=== PATIENT | female | born 1985 | race Caucasian/White ===

== ENCOUNTER 2017-10-05 06:37 | Emergency (ER) | payer BC ==
--- OUTSIDE RECORDS SUMMARY | 2017-10-05 06:39 | XMS REPORT ---
:1985 Author Organization [employer] Care Team Providers Name Role Phone Aravind Mauricio Provider Role Unavailable Allergies No Known Allergies Problems Problem Type Condition Code Onset Dates Condition Status Problem Alcohol abuse F10.10 Active Problem Thyroid dysfunction E07.9 Active Problem Well woman exam with routine Z01.419 Active gynecological exam Problem Gestational diabetes mellitus O24.419 Active (GDM), antepartum, gestational diabetes method of control unspecified Problem Body mass index (BMI) of 40.0-44.9 Z68.41 Active in adult Problem Dysthymia F34.1 Active Medications No Known Medications Results No Known Results Summary Purpose [employer] Submission
--- OUTSIDE RECORDS SUMMARY | 2017-10-05 06:39 | XMS REPORT ---
:1985 Author Organization [employer] Care Team Providers Name Role Phone Matthew Ferguson Provider Role Unavailable Allergies, Adverse Reactions, Alerts Substance Reaction Event Type N.K.D.A. Info Not Available Non Drug Allergy Problems Problem Type Condition Code Onset Dates Condition Status Assessment Alcohol abuse F10.10 Active Assessment Gestational diabetes mellitus O24.419 Active (GDM), antepartum, gestational diabetes method of control unspecified Assessment Dysthymia F34.1 Active Problem Thyroid dysfunction E07.9 Active Problem Body mass index (BMI) of 40.0-44.9 Z68.41 Active in adult Problem Alcohol abuse F10.10 Active Assessment Body mass index (BMI) of 40.0-44.9 Z68.41 Active in adult Assessment Thyroid dysfunction E07.9 Active Problem Dysthymia F34.1 Active Problem Gestational diabetes mellitus O24.419 Active (GDM), antepartum, gestational diabetes method of control unspecified Medications Medication Code Code Instructions Start End Date Status Dosage System Date Fluoxetine HCl [facility] [id number] 40 MG Oral Once Active tk 1 c po a day d. Results No Known Results Summary Purpose [employer] Submission
--- OUTSIDE RECORDS SUMMARY | 2017-10-05 06:40 | XMS REPORT ---
[...] Medications Results No Known Results Summary Purpose [facility] Submission
--- OUTSIDE RECORDS SUMMARY | 2017-10-05 06:40 | XMS REPORT ---
:1985 Author Organization [employer] Care Team Providers Name Role Phone Chester Mauricioinder Provider Role Unavailable Allergies, Adverse Reactions, Alerts Substance Reaction Event Type N.K.D.A. Info Not Available Non Drug Allergy Problems Problem Type Condition Code Onset Dates Condition Status Assessment Body mass index (BMI) of 40.0-44.9 Z68.41 Active in adult Problem Alcohol abuse F10.10 Active Problem Thyroid dysfunction E07.9 Active Problem Well woman exam with routine Z01.419 Active gynecological exam Problem Gestational diabetes mellitus O24.419 Active (GDM), antepartum, gestational diabetes method of control unspecified Assessment Well woman exam with routine Z01.419 Active gynecological exam Problem Body mass index (BMI) of 40.0-44.9 Z68.41 Active in adult Problem Dysthymia F34.1 Active Medications Medication Code Code Instructions Start End Date Status Dosage System Date Fluoxetine HCl [facility] [id number] 40 MG Oral Once Active tk 1 c po a day d. Results Name Result Date Reference Range Unit Abnormality Flag URINALYSIS AUTO W/O SCOPE (75604) ----NIT Neg [id number] ----URO 0.2 [id number] ----PROTEIN Neg [id number] ----pH 7.0 [id number] ----BLO Neg [id number] ----GLUCOSE Neg [id number] ----JAMIL Neg [id number] ----BILIRUBIN Neg [id number] ----KETONES Neg [id number] ----SPECIFIC GRAVITY 1.015 [id number] Summary Purpose [facility] Submission
--- OUTSIDE RECORDS SUMMARY | 2017-10-05 06:40 | XMS REPORT ---
:1985 Author Organization [employer] Care Team Providers Name Role Phone Aravind Mauricio Provider Role Unavailable Allergies, Adverse Reactions, Alerts Substance Reaction Event Type N.K.D.A. Info Not Available Non Drug Allergy Problems Problem Type Condition Code Onset Dates Condition Status Assessment Encounter for insertion of mirena Z30.430 Active IUD Problem Alcohol abuse F10.10 Active Problem Thyroid dysfunction E07.9 Active Problem Well woman exam with routine Z01.419 Active gynecological exam Problem Gestational diabetes mellitus O24.419 Active (GDM), antepartum, gestational diabetes method of control unspecified Assessment Encounter for insertion of Z30.430 Active intrauterine contraceptive device (IUD) Problem Body mass index (BMI) of 40.0-44.9 Z68.41 Active in adult Problem Dysthymia F34.1 Active Medications Medication Code Code Instructions Start End Date Status Dosage System Date Fluoxetine HCl [facility] [id number] 40 MG Oral Once Active tk 1 c po a day d. Results No Known Results Summary Purpose [employer] [facility] Submission
[2017-10-05 06:57] LABS: Absolute Lymphocytes (CBC) 3.3 K/uL (0.7-4.9); Absolute Monocytes 0.6 K/uL (0.1-1.3); Absolute Neutrophil 3.6 K/uL (1.8-8.0); Basophils % 0.7 % (0-1.3); Eosinophils % 3.6 % (0-4.4); Hematocrit 36.9 % (36.0-45.0); Lymphocytes % 41.7 % (15.3-44.8); MCH 30.3 pg (27.0-35.0); MCV 91.6 fL (80-100); RBC Red Blood Cell Count 4.03 M/uL (3.86-4.86)
[2017-10-05 07:15] LABS: Bicarbonate 26 mEq/L (21-31); Glucose Level 101 mg/dL (65-120); Lipase 22 U/L (22-51); Potassium 4.1 mEq/L (3.6-5.0); Sodium Level 139 mEq/L (135-145)
[2017-10-05 07:17] LABS: Urine Blood 3+ (NEG); Urine Glucose NEGATIVE (NEG); Urine Protein 2+ (NEG); Urine Specific Gravity 1.025 (1.005-1.030)
[2017-10-05 07:21] LABS: ALT/SGPT 25 IU/L (10-60); AST/SGOT 21 IU/L (10-42); Alkaline Phosphatase 61 IU/L (42-121); Amylase Level 26 U/L (28-100); BUN Blood Urea Nitrogen 11 mg/dL (6-20); Bilirubin Direct 0.1 mg/dL (0-0.2); Bilirubin Total 0.4 mg/dL (0.3-1.2)
[2017-10-05 08:05] LABS: Urine RBC >50 /HPF (NONE SEEN)
[2017-10-05 08:06] LABS: Urine Bacteria NONE SEEN /HPF (<20); Urine Culture Reflex Order NOT NEEDED
--- NOTE | 2017-10-05 08:15 | RAD REPORT ---
EXAM DESCRIPTION: CTAbdomen Pelvis W Contrast - 10/05/2017 7:48 am CLINICAL HISTORY: Abdominal pain. COMPARISON: None. TECHNIQUE: Biphasic CT imaging of the abdomen and pelvis was performed with 100 ml non-ionic IV cont rast. All CT scans are performed using dose optimization technique as appropriate and may include automated exposure control or mA/KV adjustment according to patient size. FINDINGS: The lung bases are clear. The liver, spleen, pancreas, adrenal glands and right kidney are within normal limits. Punctate left renal calculus without hydronephrosis. No bowel obstruction, free air, free fluid or abscess. Small fat containing umbilical hernia. The ángel endix is normal. No evidence of significant lymphadenopathy. Sclerosis along both SI joints noted. IMPRESSION: No acute intra-abdominal or pelvic finding. Bilateral sacroiliitis. Punctate left renal calculus without hydronephrosis.
--- NOTE | 2017-10-05 08:33 | ER ---
Nurse's Notes [facility] Name: Jazmin Cheung Age: 32 yrs Sex: Female : 1985 Arrival Date: 10/05/2017 Time: 06:38 Bed 8 Private MD: Diagnosis: Abdominal and pelvic pain Presentation: 10/05 06:38 Presenting complaint: EMS states: LOWER ABDOMINAL CRAMPING SINCE REMOVING HER OWN IUD bp LAST NIGHT. Transition of care: patient was not received from another setting of care. Onset of symptoms was October 04, 2017 at 21:00. Risk Assessment: Do you want to hurt yourself or someone else? Patient reports no desire to harm self or others. Initial Sepsis Screen: Does the patient meet any 2 criteria? No. Patient's initial sepsis screen is negative. Does the patient have a suspected source of infection? No. Patient's initial sepsis screen is negative. Care prior to arrival: Glucose check: 98. 06:38 Method Of Arrival: EMS: [facility] bp 06:38 Acuity: SHANNON 3 bp Triage Assessment: 06:41 General: Appears in no apparent distress. comfortable, obese, Behavior is cooperative, bp appropriate for age, flat. Pain: Complains of pain in right lower quadrant and left lower quadrant. GI: Abdomen is obese. 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 - Social history:: Smoking status: Patient/guardian denies using tobacco. - Ebola Screening: : Patient negative for fever greater than or equal to 101.5 degrees Fahrenheit, and additional compatible Ebola Virus Disease symptoms Patient denies exposure to infectious person Patient denies travel to an Ebola-affected area in the 21 days before illness onset No symptoms or risks identified at this time. Screenin:44 Abuse screen: Denies threats or abuse. Denies injuries from another. Nutritional bp screening: No deficits noted. Tuberculosis screening: No symptoms or risk factors identified. Fall Risk None identified. Assessment: 06:42 General: Appears in no apparent distress. comfortable, obese, Behavior is calm, bp cooperative, appropriate for age. Pain: Complains of pain in right lower quadrant and left lower quadrant. Neuro: Level of Consciousness is awake, alert, obeys commands, Oriented to person, place, time, situation, Appropriate for age. Cardiovascular: No deficits noted. Respiratory: Airway is patent Respiratory effort is even, unlabored, Respiratory pattern is regular, symmetrical. GI: Bowel sounds present X 4 quads. Abd is soft X 4 quads. : No signs and/or symptoms were reported regarding the genitourinary system. EENT: No deficits noted. Derm: No deficits noted. Musculoskeletal: Circulation, motion, and sensation intact. Range of motion: intact in all extremities. 07:05 Reassessment: Patient appears in no apparent distress at this time. Patient and/or hb family updated on plan of care and expected duration. Pain level reassessed. Patient is alert, oriented x 3, equal unlabored respirations, skin warm/dry/pink. 08:00 Reassessment: Patient appears in no apparent distress at this time. No changes from previously documented assessment. Patient and/or family updated on plan of care and expected duration. Pain level reassessed. Patient is alert, oriented x 3, equal unlabored respirations, skin warm/dry/pink. Vital Signs: 06:41 BP 116 / 67; Pulse 82; Resp 16; Temp 97.6; Pulse Ox 100% ; Weight 100.7 kg; Height 5 bp ft. 1 in. (154.94 cm); 07:30 BP 113 / 64; Pulse 75; Resp 16; Pulse Ox 100% on R/A; hb 08:00 BP 112 / 68; Pulse 88; Resp 15; Pulse Ox 97% on R/A; hb 06:41 Body Mass Index 41.95 (100.70 kg, 154.94 cm) bp ED Course: 06:38 Patient arrived in ED. bp 06:40 Triage completed. bp 06:41 Arm band placed on. bp 06:44 Patient has correct armband on for positive identification. Placed in gown. Bed in low bp position. Call light in reach. Side rails up X2. Adult w/ patient. 06:45 Lencho Paz, DEVANTE is Primary Nurse. bp 06:45 Inserted saline lock: 20 gauge in left antecubital area, using aseptic technique. Blood mg2 collected. by [facility]. 06:57 Rafael Ball MD is Attending Physician. kdr 07:[address] via wheelchair. vr 07:46 CT completed. Patient tolerated procedure well. Patient moved back from CT. sj 07:48 CT Abd/Pelvis - W/Contrast In Process Unspecified. EDMS 08:44 No provider procedures requiring assistance completed. IV discontinued, intact, hb bleeding controlled, No redness/swelling at site. Pressure dressing applied. Administered Medications: 08:44 Drug: [place] 10 mg-325 mg 1 tabs Route: PO; hb 08:44 Follow up: Response: Medication administered at discharge. hb Outcome: 08:32 Discharge ordered by . kdr 08:44 Discharged to home ambulatory, with significant other. hb 08:44 Condition: stable 08:44 Discharge instructions given to patient, significant other, Instructed on discharge instructions, follow up and referral plans. medication usage, Demonstrated understanding of instructions, follow-up care, medications, Prescriptions given X 3. 08:46 Patient left the ED. hb Signatures: Dispatcher [employer] EDMS Rafael Ball MD MD kdr Jones, Susan sj Davis, Victoria Karissa Block, RN RN Lencho Paz, RN RN Tian Giraldo, RN RN mg2
--- NOTE | 2017-10-05 08:33 | EDPHYS ---
Physician Documentation [facility] Name: Jazmin Cheung Age: 32 yrs Sex: Female : 1985 Arrival Date: 10/05/2017 Time: 06:38 Bed 8 Private MD: ED Physician Rafael Ball HPI: 10/05 07:33 This 32 yrs old Female presents to ER via EMS with complaints of Abdominal kdr Cramping. 07:34 The patient presents with abdominal pain in the lower abdomen, that is diffuse. Onset: kdr The symptoms/episode began/occurred gradually, 2 day(s) ago. The symptoms do not radiate. Associated signs and symptoms: Pertinent positives: nausea, Diaphoretic intermitently. The symptoms are described as achy, crampy, dull, intermittent, vague. Modifying factors: The symptoms are alleviated by nothing, the symptoms are aggravated by nothing. Severity of pain: At its worst the pain was moderate in the emergency department the pain has improved mildly. The patient has not experienced similar symptoms in the past. On September 21, [facility] Last night with her cramping, she states she pulled out the IUD. She is currently on her period. 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 - Social history:: Smoking status: Patient/guardian denies using tobacco. - Ebola Screening: : Patient negative for fever greater than or equal to 101.5 degrees Fahrenheit, and additional compatible Ebola Virus Disease symptoms Patient denies exposure to infectious person Patient denies travel to an Ebola-affected area in the 21 days before illness onset No symptoms or risks identified at this time. ROS: 07:34 Constitutional: Negative for fever, chills, and weight loss, Eyes: Negative for injury, kdr pain, redness, and discharge, ENT: Negative for injury, pain, and discharge, Neck: Negative for injury, pain, and swelling, Cardiovascular: Negative for chest pain, palpitations, and edema, Respiratory: Negative for shortness of breath, cough, wheezing, and pleuritic chest pain, Back: Negative for injury and pain, : Negative for injury, bleeding, discharge, and swelling, MS/Extremity: Negative for injury and deformity, Skin: Negative for injury, rash, and discoloration, Neuro: Negative for headache, weakness, numbness, tingling, and seizure activity. Psych: Negative for depression, anxiety, suicide ideation, homicidal ideation, and hallucinations, Allergy/Immunology: Negative for hives, rash, and allergies, Endocrine: Negative for neck swelling, polydipsia, polyuria, polyphagia, and marked weight changes, Hematologic/Lymphatic: Negative for swollen nodes, abnormal bleeding, and unusual bruising. 07:34 Abdomen/GI: Positive for abdominal pain, nausea, abdominal cramps, Negative for vomiting, diarrhea, constipation, abdominal distension, anorexia, dysphagia, hematemesis, black/tarry stool, rectal pain, rectal bleeding, bowel incontinence. 07:34 : Positive for vaginal bleeding, Currently on her period, Negative for urinary symptoms, urinary frequency, flank pain, burning with urination, difficulty urinating, bladder incontinence, foul smelling urine. Exam: 07:34 Constitutional: This is a well developed, well nourished patient who is awake, alert, kdr and in no acute distress. Head/Face: Normocephalic, atraumatic. Eyes: Pupils equal round and reactive to light, extra-ocular motions intact. Lids and lashes normal. Conjunctiva and sclera are non-icteric and not injected. Cornea within normal limits. Periorbital areas with no swelling, redness, or edema. Neck: Trachea midline, no thyromegaly or masses palpated, and no cervical lymphadenopathy. Supple, full range of motion without nuchal rigidity, or vertebral point tenderness. No Meningismus. Chest/axilla: Normal chest wall appearance and motion. Nontender with no deformity. No lesions are appreciated. Cardiovascular: Regular rate and rhythm with a normal S1 and S2. No gallops, murmurs, or rubs. Normal PMI, no JVD. No pulse deficits. Respiratory: Lungs have equal breath sounds bilaterally, clear to auscultation and percussion. No rales, rhonchi or wheezes noted. No increased work of breathing, no retractions or nasal flaring. Abdomen/GI: Soft, non-tender, with normal bowel sounds. No distension or tympany. No guarding or rebound. No evidence of tenderness throughout. Back: No spinal tenderness. No costovertebral tenderness. Full range of motion. Skin: Warm, dry with normal turgor. Normal color with no rashes, no lesions, and no evidence of cellulitis. MS/ Extremity: Pulses equal, no cyanosis. Neurovascular intact. Full, normal range of motion. Neuro: Awake and alert, GCS 15, oriented to person, place, time, and situation. Cranial nerves II-XII grossly intact. Motor strength 5/5 in all extremities. Sensory grossly intact. Cerebellar exam normal. Normal gait. Psych: Awake, alert, with orientation to person, place and time. Behavior, mood, and affect are within normal limits. Vital Signs: 06:41 BP 116 / 67; Pulse 82; Resp 16; Temp 97.6; Pulse Ox 100% ; Weight 100.7 kg; Height 5 bp ft. 1 in. (154.94 cm); 07:30 BP 113 / 64; Pulse 75; Resp 16; Pulse Ox 100% on R/A; hb 08:00 BP 112 / 68; Pulse 88; Resp 15; Pulse Ox 97% on R/A; hb 06:41 Body Mass Index 41.95 (100.70 kg, 154.94 cm) bp MDM: 07:34 Data reviewed: vital signs, nurses notes, lab test result(s), radiologic studies. kdr Counseling: I had a detailed discussion with the patient and/or guardian regarding: the historical points, exam findings, and any diagnostic results supporting the discharge/admit diagnosis, lab results, radiology results. 08:32 Patient medically screened. kdr 08:39 Special discussion: Based on the patient's Hx, exam, and Dx evaluation, there is no kdr indication for emergent surgery or inpatient Tx. It is understood by the patient/guardian that if the Sx's persist or worsen they need to return immediately for re-evaluation. I discussed with the patient/guardian in detail that at this point there is no indication for admission to the hospital. It is understood, however, that if the symptoms persist or worsen the patient needs to return immediately for re-evaluation. ED course: The patient states that she was feeling somewhat better but that the pain had no completely resolved. She had no other c/o and was happy with the care provided and the plan for discharge and follow-up. 10/05 06:45 Order name: Urine Microscopic Only; Complete Time: 08:20 bp 10/05 06:45 Order name: Amylase, Serum; Complete Time: 08:20 bp 10/05 06:45 Order name: Basic Metabolic Panel; Complete Time: 08:20 bp 10/05 06:45 Order name: CBC with Diff; Complete Time: 07:20 bp 10/05 06:45 Order name: Creatinine for Radiology; Complete Time: 07:20 bp 10/05 06:45 Order name: Hepatic Function; Complete Time: 08:20 bp 10/05 06:45 Order name: Lipase; Complete Time: 08:20 bp 10/05 07:05 Order name: Urine Dipstick--Ancillary (enter results) bd 10/05 07:05 Order name: Urine --Ancillary (enter results) bd 10/05 07:05 Order name: Urine Dipstick-Ancillary; Complete Time: 07:20 EDMS 10/05 07:05 Order name: Urine --Ancillary; Complete Time: 07:20 EDMS 10/05 07:20 Order name: CT Abd/Pelvis - W/Contrast; Complete Time: 08:20 kdr 10/05 06:45 Order name: Urine Test (obtain specimen); Complete Time: 07:20 bp 10/05 06:45 Order name: IV Saline Lock; Complete Time: 06:46 bp 10/05 06:45 Order name: Labs collected and sent; Complete Time: 06:46 bp 10/05 06:45 Order name: Urine Dipstick-Ancillary (obtain specimen); Complete Time: 07:20 bp Administered Medications: 08:44 Drug: [place] 10 mg-325 mg 1 tabs Route: PO; hb 08:44 Follow up: Response: Medication administered at discharge. hb Disposition: 10/05/17 08:32 Discharged to Home. Impression: Abdominal and pelvic pain. - Condition is Stable. - Prescriptions for Bentyl 20 mg Oral Tablet - take 1 tablet by ORAL route every 6 hours As needed; 20 tablet. Pepcid 20 mg Oral Tablet - take 1 tablet by ORAL route every 12 hours for 5 days; 10 tablet. Zofran 4 mg Oral Tablet - take 1 tablet by ORAL route every 12 hours As needed; 10 tablet. Tramadol 50 mg Oral Tablet - take 1 tablet by ORAL route every 8 hours as needed; 12 tablet. - Medication Reconciliation Form, Thank You Letter form. - Follow up: Private Physician; When: 2 - 3 days; Reason: If symptoms return, Further diagnostic work-up, Recheck today's complaints, Continuance of care, Re-evaluation by your physician. - Problem is new. - Symptoms have improved. Signatures: Dispatcher [employer] [facility] Rafael Ball MD MD kdr Karissa Block, RN RN Lencho Paz RN RN bp Corrections: (The following items were deleted from the chart) 07:16 07:00 URINALYSIS+U.LAB.BRZ ordered. [facility] 08:46 08:32 10/05/2017 08:32 Discharged to Home. Impression: Abdominal and pelvic pain. hb Condition is Stable. Forms are Medication Reconciliation Form, Thank You Letter, Antibiotic Education, Prescription Opioid Use. Follow up: Private Physician; When: 2 - 3 days; Reason: If symptoms return, Further diagnostic work-up, Recheck today's complaints, Continuance of care, Re-evaluation by your physician. Problem is new. Symptoms have improved. kdr
[2017-10-05] MEDS ORDERED: HYDROCODONE/APAP 10/325 TAB ONE (08:41)
== END 2017-10-05 08:46 | disposition home or self-care (01) ==
LOC: ER 06:37
DX: R10.2 Pelvic and perineal pain (principal); F32.9 Major depressive disorder, single episode, unspecified
CPT/HCPCS: 36415; 74177; 80048; 80076; 81003; 81015; 81025; 82150; 83690; 85025; 99284; Q9967

== ENCOUNTER 2019-11-13 19:58 | Emergency (ER) | payer BC ==
--- OUTSIDE RECORDS SUMMARY | 2019-11-13 20:00 | XMS REPORT | Continuity of Care Document ---
:1985 Author Organization [facility] t Address [address] [place] [address] Care Team Providers Name Role Phone Unavailable Unavailable Unavailable Problems Condition Condition Condition Status Onset Resolution Last Treating Co mments Source Name Details Category Date Date Treatment Clinician Date Alcohol Alcohol Problem Active [facility] Gestationa Gestationa Problem Active [facility] l diabetes l diabetes Sharona kes - mellitus mellitus Memori a (GDM), (GDM), l antepartum antepartum Ou tpati , , ent gestationa gestationa Cl inics l diabetes l diabetes method of method of control control unspecifie unspecifie d d Dysthymia Dysthymia Problem Active [facility] Thyroid Thyroid Problem Active [facility] dysfunctio dysfunctio Sharona kes - n n Memoria l [facility] Body mass Body mass Problem Active [facility] index index [facility]ukes - (BMI) of (BMI) of Memori a 40.0-44.9 40.0-44.9 l in adult in adult Outpat i ent Clinics Well woman Well woman Problem Active [facility] exam with exam with Luke s - routine routine Memoria gynecologi gynecologi l karrie exam karrie exam Outpat i ent Clinics Atypical Atypical Problem Active [facility] squamous squamous [facility] - cells of cells of Memori a undetermin undetermin l ed ed Outpati significan significan en t ce on ce on Clinics cytologic cytologic smear of smear of cervix cervix (ASC-US) (ASC-US) Pelvic Pelvic Problem Active [facility] pain pain [facility] 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 Medications Ordered Filled Start Stop Current Ordering Indication Dosage Frequency Signature Comments Components Source Medication Medication Date Date Medication? Clinician (SIG) Name Name Fluoxetine Fluoxetine Yes Aravind [address] [facility] [address] [facility] Procedures This patient has no known procedures. Encounters Start End Encounter Admission Attending Care Care Encounter Source Date/Time Date/Time Type Type Clinicians Facility Department ID 2018-04-20 2018-04-20 [facility] [id number] [facility] [address] 16[facility]00[facility]00 16:00:00 [facility] 2018-01-31 2018-01-31 [facility] [id number] 13:00[facility]00 13:00:[address] [facility] 2017-12-13 2017-12-13 [facility] [id number] 16[facility]39[facility]00 16:39[facility]00 [facility] 2017-12-06 2017-12-06 [facility] [id number] 10:24:00 10:24:00 [facility] 2017-12-01 2017-12-01 [facility] [id number] [address] 14:00[facility]00 14:00:00 [facility] 2017-10-25 2017-10-25 [facility] [id number] 11:14:00 11:14:00 [facility] 2017-10-13 2017-10-13 [facility] [id number] [address] 14:00[facility]00 14:00:00 [facility] 2017-09-22 2017-09-22 [facility] [id number] 13:16:00 13:16:00 [facility] 2017-09-21 2017-09-21 [facility] [id number] 14:45:00 14:45:00 [facility] 2017-08-29 2017-08-29 [facility] [id number] 23:07:00 23[facility]07:00 [facility] 2017-08-24 2017-08-24 [facility] [id number] 10:30:00 10:30:00 [facility] Outpati ent Clinics 2017-07-21 2017-07-21 [facility] [id number] 09:30:00 09:30:00 t [facility] Results This patient has no known results.
--- NOTE | 2019-11-13 21:22 | ER ---
Nurse's Notes [facility] Name: Jazmin Cheung Age: 34 yrs Sex: Female : 1985 Arrival Date: 11/13/2019 Time: 20:00 Bed 25 Private MD: Diagnosis: Fall;Abdominal Wall Strain Presentation: 11/12 20:17 Chief complaint: Patient states: Tripped over a toy this morning on front porch, fell lp1 onto left side of body; States slight discomfort to left lower pelvic area, denies any other injuries; Denies any vaginal bleeding, discharge; States called nurse hotline and recommended to come to ER, patient is currently . Coronavirus screen: Proceed with normal triage. Ebola Screen: No symptoms or risks identified at this time. Initial Sepsis Screen: Does the patient meet any 2 criteria? No. Patient's initial sepsis screen is negative. Does the patient have a suspected source of infection? No. Patient's initial sepsis screen is negative. Risk Assessment: Do you want to hurt yourself or someone else? Patient reports no desire to harm self or others. Onset of symptoms was November 13, 2019. 20:17 Method Of Arrival: Ambulatory lp1 20:17 Acuity: SHANNON 3 lp1 Triage Assessment: 20:22 General: Appears in no apparent distress. comfortable, Behavior is calm, cooperative. 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 - Social history:: Smoking status: Patient reports the use of cigarette tobacco products, smokes one pack cigarettes per day. Smoking status: Patient denies any tobacco usage or history of. Screenin:22 Abuse screen: Denies threats or abuse. Denies injuries from another. Nutritional lp1 screening: No deficits noted. Tuberculosis screening: No symptoms or risk factors identified. 20:22 Fall Risk None identified. ls4 Assessment: 20:39 General: Appears in no apparent distress. comfortable, Behavior is calm, cooperative. ls4 Neuro: No deficits noted. Cardiovascular: No deficits noted. Respiratory: No deficits noted. Musculoskeletal: Circulation, motion, and sensation intact. Capillary refill < 3 seconds, Range of motion: intact in all extremities. 20:40 Reassessment: Patient appears in no apparent distress at this time. Patient and/or ls4 family updated on plan of care and expected duration. Pain level reassessed. Patient is alert, oriented x 3, equal unlabored respirations, skin warm/dry/pink. Pain: Complains of pain in posterior aspect of left lateral abdomen and anterior aspect of left lateral abdomen Pain currently is 4 out of 10 on a pain scale. Quality of pain is described as. 20:40 GI: No deficits noted. No signs and/or symptoms were reported involving the ls4 gastrointestinal system. Derm: No deficits noted. No signs and/or symptoms reported regarding the dermatologic system. Skin is intact, is healthy with good turgor, Skin is dry, Skin is pink, warm \T\ dry. Injury Description: NO VISIBLE INJURY. Vital Signs: 20:17 BP 128 / 80; Pulse 95; Resp 16; Temp 98.9(O); Pulse Ox 100% on R/A; Weight 74.84 kg lp1 (R); Height 5 ft. 1 in. (154.94 cm); 20:17 Body Mass Index 31.18 (74.84 kg, 154.94 cm) lp1 ED Course: 20:00 Patient arrived in ED. ds1 20:13 David Torres PA is PHCP. [facility] 20:13 Lamont Garcia MD is Attending Physician. [facility] 20:19 Triage completed. lp1 20:22 Arm band placed on. lp1 20:22 No provider procedures requiring assistance completed. ls4 20:23 Patient has correct armband on for positive identification. Bed in low position. Call ls4 light in reach. Side rails up X 1. 20:39 Jaqueline Arias, DEVANTE is Primary Nurse. ls4 21:30 US 1st Trimest Single 1st Fetus In Process Unspecified. EDMS 21:51 IV discontinued, intact, bleeding controlled, No redness/swelling at site. Pressure ls4 dressing applied. Administered Medications: No medications were administered Outcome: : Discharge ordered by . gonsalo 21:51 Discharged to home ambulatory. ls4 21:51 Condition: good 21:51 Discharge instructions given to patient, Instructed on discharge instructions, follow up and referral plans. Demonstrated understanding of instructions, follow-up care. 21:52 Patient left the ED. ls4 Signatures: Dispatcher [employer] EDMS David Torres PA PA Carmen Qiu ds1 Jaquelin Truong, RN RN lp1 Jaqueline Arias, RN RN ls4
--- NOTE | 2019-11-13 21:22 | EDPHYS ---
Physician Documentation [facility] Name: Jazmin Cheung Age: 34 yrs Sex: Female : 1985 Arrival Date: 11/13/2019 Time: 20:00 Bed 25 Private MD: ED Physician Lamont Garcia HPI: 11/12 20:19 This 34 yrs old Female presents to ER via Ambulatory with complaints of Fall jmm Injury - 11 Wks Preg. 20:19 Details of fall: The patient fell from an upright position. Onset: The symptoms/episode jmm began/occurred acutely, just prior to arrival. The patient has not experienced similar symptoms in the past. This is 34 year old female currently 12 weeks that presents to the ED with complaint of left groin pain beginning after a fall on her left side. Patient denies vaginal bleeding or low back pain. . 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 - Social history:: Smoking status: Patient reports the use of cigarette tobacco products, smokes one pack cigarettes per day. Smoking status: Patient denies any tobacco usage or history of. ROS: 20:19 Constitutional: Negative for fever, chills, and weight loss, Cardiovascular: Negative jmm for chest pain, palpitations, and edema, Respiratory: Negative for shortness of breath, cough, wheezing, and pleuritic chest pain. 20:19 : Negative for vaginal bleeding. 20:19 All other systems are negative. Exam: 20:19 Constitutional: This is a well developed, well nourished patient who is awake, alert, jmm and in no acute distress. Head/Face: atraumatic. Eyes: EOMI, no conjunctival erythema appreciated ENT: Moist Mucus Membranes Neck: Trachea midline, Supple Chest/axilla: Normal chest wall appearance and motion. Cardiovascular: Regular rate and rhythm. No edema appreciated Respiratory: Normal respirations, no respiratory distress appreciated Abdomen/GI: Non distended, soft Back: Normal ROM Skin: General appearance color normal MS/ Extremity: Moves all extremities, no obvious deformities appreciated, no edema noted to the lower extremities Neuro: Awake and alert, normal gait Psych: Behavior is normal, Mood is normal, Patient is cooperative and pleasant Vital Signs: 20:17 BP 128 / 80; Pulse 95; Resp 16; Temp 98.9(O); Pulse Ox 100% on R/A; Weight 74.84 kg lp1 (R); Height 5 ft. 1 in. (154.94 cm); 20:17 Body Mass Index 31.18 (74.84 kg, 154.94 cm) lp1 MDM: 20:19 Patient medically screened. gonsalo 21:21 Data reviewed: vital signs, nurses notes. Counseling: I had a detailed discussion with gonsalo the patient and/or guardian regarding: the historical points, exam findings, and any diagnostic results supporting the discharge/admit diagnosis, the need for outpatient follow up, to return to the emergency department if symptoms worsen or persist or if there are any questions or concerns that arise at home. 11/12 20:36 Order name: 1st Trimest Single 1st Fetus [facility] Administered Medications: No medications were administered Disposition: 23:02 Co-signature as Attending Physician, Lamont Garcia MD. pete Disposition: 11/13/19 21:22 Discharged to Home. Impression: Fall, Abdominal Wall Strain. - Condition is Stable. - Discharge Instructions: Fall Prevention in the Home. - Medication Reconciliation Form, Thank You Letter, Antibiotic Education, Prescription Opioid Use form. - Follow up: Private Physician; When: 2 - 3 days; Reason: Recheck today's complaints, Continuance of care, Re-evaluation by your physician. Signatures: Dispatcher [employer] EDLamont Baird MD MD pkl Mickail, Joel, PA PA jmm Pena, Laura RN RN lp1 Jaqueline Arias RN RN ls4 Corrections: (The following items were deleted from the chart) 21:52 21:22 11/13/2019 21:22 Discharged to Home. Impression: Fall; Abdominal Wall Strain. ls4 Condition is Stable. Forms are Medication Reconciliation Form, Thank You Letter, Antibiotic Education, Prescription Opioid Use. Follow up: Private Physician; When: 2 - 3 days; Reason: Recheck today's complaints, Continuance of care, Re-evaluation by your physician. gonsalo
--- NOTE | 2019-11-13 22:00 | RAD REPORT ---
EXAM DESCRIPTION: US - 1St Trimest Single 1St Fetus - 11/13/2019 9:29 pm CLINICAL HISTORY: trauma, fall, pelvic pain COMPARISON: No comparisons FINDINGS: A single gestational sac is seen within the uterus. The shape of the sac is within normal limits for gestational age. Within the sac is a single pole with crown-rump length of 4.2 cm, c orrelating to estimated gestational age of 11 weeks 3 days. Estimated date of delivery is 05/31/2020. Heart rate is 165 BPM. Placenta appears fundal. 4 x 5 cm isoechoic structure anterior myometrium probably represents a fibro id or adenomyoma. The maternal adnexa and ovaries are within normal limits. Normal Doppler blood flow was demonstrated to both ovaries. IMPRESSION: Single live early intrauterine gestation with estimated gestational age of 11 weeks 3 da ys, MOSES 05/31/2020. No acute trauma related abnormality is seen.
[2019-11-14 12:41] VITALS: BP 128/80; TEMP 98.9; O2SAT 100
== END 2019-11-13 21:52 | disposition home or self-care (01) ==
LOC: ER 19:58
DX: O9A.211 Injury, poisoning and certain other consequences of external causes complicating pregnancy, first trimester (principal); S39.011A Strain of muscle, fascia and tendon of abdomen, initial encounter; O99.331 Smoking (tobacco) complicating pregnancy, first trimester; F17.210 Nicotine dependence, cigarettes, uncomplicated; W19.XXXA Unspecified fall, initial encounter; Y93.9 Activity, unspecified; Y92.9 Unspecified place or not applicable
CPT/HCPCS: 76801; 99283

== ENCOUNTER 2019-12-20 22:39 | Emergency (ER) | payer BC ==
--- OUTSIDE RECORDS SUMMARY | 2019-12-20 22:41 | XMS REPORT | Continuity of Care Document ---
:1985 Author Organization [facility] t Address [address] [place] [address] Care Team Providers Name Role Phone Unavailable Unavailable Unavailable Problems Condition Condition Condition Status Onset Resolution Last Treating Co mments Source Name Details Category Date Date Treatment Clinician Date Alcohol Alcohol Problem Active [facility] Gestationa Gestationa Problem Active [facility] l diabetes l diabetes Sharona kes - mellitus mellitus Memori a (GDM), (GDM), l antepartum antepartum Ou tpati , , ent gestationa gestationa Cl inics l diabetes l diabetes method of method of control control unspecifie unspecifie d d Dysthymia Dysthymia Problem Active [facility] Thyroid Thyroid Problem Active [facility] dysfunctio dysfunctio Sharona kes - n n Memoria l [facility] Clinics Body mass Body mass Problem [...] St pain pain [facility] 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 Medications Ordered Filled Start Stop Current Ordering Indication Dosage Frequency Signature Comments Components Source Medication Medication Date Date Medication? Clinician (SIG) Name Name Fluoxetine Fluoxetine Yes Aravind [address] [facility] Procedures This patient has no known procedures. Encounters Start End Encounter Admission Attending Care Care Encounter Source Date/Time Date/Time Type Type Clinicians Facility Department ID 2018-04-20 2018-04-20 [facility] [id number] [facility] 16:00[facility]00 16:00:00 [facility] 2018-01-31 2018-01-31 [facility] [id number] 13:00:00 13:00:00 t [facility] 2017-12-13 2017-12-13 [facility] [id number] 16:39:00 16:39:00 [facility] 2017-12-06 2017-12-06 [facility] [id number] 10:24:00 10:24:00 [facility] 2017-12-01 2017-12-01 [facility] [id number] 14:00:00 14:00:00 [facility] 2017-10-25 2017-10-25 [facility] [id number] 11:14:00 11:14:00 [facility] 2017-10-13 2017-10-13 [facility] [id number] 14:00:00 14:00:00 [facility] 2017-09-22 2017-09-22 [facility] [id number] 13:16:00 13:16:00 [facility] 2017-09-21 2017-09-21 [facility] [id number] [facility] 14:45:00 14:45:00 [facility] 2017-08-29 2017-08-29 [facility] [id number] 23:07:00 23:07:00 [facility] 2017-08-24 2017-08-24 [facility] [id number] 10:30:00 10:30:00 [facility] Outpati ent Clinics 2017-07-21 2017-07-21 [facility] [id number] 09:30:00 09:30:00 t [facility] Results This patient has no known results.
[2019-12-21 00:16] LABS: Absolute Lymphocytes (CBC) 2.7 K/uL (0.7-4.9); Basophils % 0.5 % (0-1.3); Hematocrit 36.5 % (36.0-45.0); Lymphocytes % 18.2 % (15.3-44.8); MPV 7.2 fL (7.6-11.3); RBC Red Blood Cell Count 3.88 M/uL (3.86-4.86)
[2019-12-21] MEDS ORDERED: NA CHLORIDE 0.9% 1,000 ML ONE (00:17)
[2019-12-21 00:32] LABS: ALT/SGPT 89 U/L (12-78); AST/SGOT 37 U/L (15-37); Albumin 3.2 g/dL (3.4-5.0); Alkaline Phosphatase 68 U/L (45-117); BUN Blood Urea Nitrogen 7 mg/dL (7-18); Bicarbonate 23 mmol/L (21-32); Bilirubin Direct < 0.1 mg/dL (0-0.2); Bilirubin Total 0.2 mg/dL (0.2-1.0); Glucose Level 113 mg/dL (74-106); Lipase 75 U/L (73-393); Potassium 3.9 mmol/L (3.5-5.1); Protein, Total 6.9 g/dL (6.4-8.2); Sodium Level 139 mmol/L (136-145)
--- NOTE | 2019-12-21 00:51 | EDPHYS ---
Physician Documentation [facility] Name: Jazmin Cheung Age: 34 yrs Sex: Female : 1985 Arrival Date: 12/20/2019 Time: 22:40 Bed 16 Private MD: ED Physician Kal Wakefield HPI: 12/19 23:47 This 34 yrs old Female presents to ER via Ambulatory with complaints of uzma Bloody Stools. 23:47 The patient presents to the emergency department with nausea, vomiting, diarrhea, uzma abdominal pain, of the right lower quadrant and left lower quadrant. Onset: The symptoms/episode began/occurred today. Possible causes: unknown. The symptoms are aggravated by nothing. The symptoms are alleviated by nothing. The patient presents with 15 weeks . Onset: The symptoms/episode began/occurred today. Modifying factors: The symptoms are alleviated by nothing, the symptoms are aggravated by nothing. Associated signs and symptoms: Pertinent positives: cramping. Associated signs and symptoms:. Severity of symptoms: At their worst the symptoms were mild, in the emergency department the symptoms are unchanged. 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 - Social history:: Smoking status: Patient reports the use of cigarette tobacco products, smokes one pack cigarettes per day. ROS: 23:49 Constitutional: Negative for fever, chills, and weight loss, Eyes: Negative for injury, uzma pain, redness, and discharge, ENT: Negative for injury, pain, and discharge, Neck: Negative for injury, pain, and swelling, Cardiovascular: Negative for chest pain, palpitations, and edema, Respiratory: Negative for shortness of breath, cough, wheezing, and pleuritic chest pain, Back: Negative for injury and pain, : Negative for injury, bleeding, discharge, and swelling, MS/Extremity: Negative for injury and deformity, Skin: Negative for injury, rash, and discoloration, Neuro: Negative for headache, weakness, numbness, tingling, and seizure, Psych: Negative for depression, anxiety, suicide ideation, homicidal ideation, and hallucinations, Allergy/Immunology: Negative for hives, rash, and allergies, Endocrine: Negative for neck swelling, polydipsia, polyuria, polyphagia, and marked weight changes, Hematologic/Lymphatic: Negative for swollen nodes, abnormal bleeding, and unusual bruising. 23:49 Abdomen/GI: Positive for abdominal cramps, abdominal distension. Exam: 23:49 Constitutional: This is a well developed, well nourished patient who is awake, alert, uzma and in no acute distress. Head/Face: Normocephalic, atraumatic. Eyes: Pupils equal round and reactive to light, extra-ocular motions intact. Lids and lashes normal. Conjunctiva and sclera are non-icteric and not injected. Cornea within normal limits. Periorbital areas with no swelling, redness, or edema. ENT: Nares patent. No nasal discharge, no septal abnormalities noted. Tympanic membranes are normal and external auditory canals are clear. Oropharynx with no redness, swelling, or masses, exudates, or evidence of obstruction, uvula midline. Mucous membranes moist. Neck: Trachea midline, no thyromegaly or masses palpated, and no cervical lymphadenopathy. Supple, full range of motion without nuchal rigidity, or vertebral point tenderness. No Meningismus. Chest/axilla: Normal chest wall appearance and motion. Nontender with no deformity. No lesions are appreciated. Cardiovascular: Regular rate and rhythm with a normal S1 and S2. No gallops, murmurs, or rubs. Normal PMI, no JVD. No pulse deficits. Respiratory: Lungs have equal breath sounds bilaterally, clear to auscultation and percussion. No rales, rhonchi or wheezes noted. No increased work of breathing, no retractions or nasal flaring. Back: No spinal tenderness. No costovertebral tenderness. Full range of motion. Female : Normal external genitalia. Skin: Warm, dry with normal turgor. Normal color with no rashes, no lesions, and no evidence of cellulitis. MS/ Extremity: Pulses equal, no cyanosis. Neurovascular intact. Full, normal range of motion. Neuro: Awake and alert, GCS 15, oriented to person, place, time, and situation. Cranial nerves II-XII grossly intact. Motor strength 5/5 in all extremities. Sensory grossly intact. Cerebellar exam normal. Normal gait. Psych: Awake, alert, with orientation to person, place and time. Behavior, mood, and affect are within normal limits. 23:49 Abdomen/GI: Inspection: distension, gravid appearance, is noted, Bowel sounds: normal, Palpation: mild abdominal tenderness, in all quadrants, Liver: no appreciated palpable abnormalities, Hernia: not appreciated. 12/20 00:47 Abdomen/GI: Rectal exam: rectal tone normal, Stool: guaiac positive, hemorrhoid(s), are uzma not appreciated, mass, is not appreciated, swelling, is not appreciated, tenderness, is not appreciated, fecal impaction, is not appreciated, the exam is chaperoned by the nurse. Vital Signs: 12/19 23:14 BP 102 / 69; Pulse 91; Resp 16; Temp 97.8; Pulse Ox 100% on R/A; Weight 78.93 kg; iw Height 5 ft. 1 in. (154.94 cm); Pain 4/10; 12/20 00:30 BP 108 / 65; Pulse 89; Resp 16; Pulse Ox 100% on R/A; jb4 01:30 BP 103 / 72; Pulse 92; Resp 16; Pulse Ox 100% on R/A; jb4 12/19 23:14 Body Mass Index 32.88 (78.93 kg, 154.94 cm) iw MDM: 12/19 23:29 Patient medically screened. [facility] 23:50 Data reviewed: vital signs, nurses notes, lab test result(s), radiologic studies, plain uzma films. 23:52 Differential diagnosis: Nonspecific abd pain, gastritis, viral gastroenteritis, uzma gastroenteritis. Data interpreted: campus monitor: not applicable for this patient encounter. rate is 91 beats/min, rhythm is regular, Pulse oximetry: is not applicable for this patient encounter. Counseling: I had a detailed discussion with the patient and/or guardian regarding: the historical points, exam findings, and any diagnostic results supporting the discharge/admit diagnosis, lab results, the need for outpatient follow up, for definitive care, a belt maker helper, an OB/Gyne specialist. 23:57 ED course: explained all results, will follow up, return if worsens. uzma 12/19 23:31 Order name: Basic Metabolic Panel; Complete Time: 00:44 [facility] 12/19 23:31 Order name: CBC with Diff; Complete Time: 00:44 [facility] 12/19 23:31 Order name: Hepatic Function; Complete Time: 00:44 [facility] 12/19 23:31 Order name: Lipase; Complete Time: 00:44 [facility] 12/19 23:31 Order name: IV Saline Lock; Complete Time: 00:24 [facility] 12/19 23:31 Order name: Labs collected and sent; Complete Time: 00:24 [facility] 12/19 23:31 Order name: Urine Dipstick-Ancillary (obtain specimen); Complete Time: 00:24 [facility] 12/19 23:31 Order name: Urine Test (obtain specimen); Complete Time: 01:54 [facility] 12/20 01:04 Order name: Urine Dipstick--Ancillary (enter results) [facility] 12/19 23:31 Order name: FHT's; Complete Time: 00:24 [facility] Administered Medications: 12/20 00:10 Drug: NS 0.9% 1000 ml Route: IV; Rate: 1 bolus; Site: right antecubital; iw 00:50 Follow up: Response: No adverse reaction; IV Status: Completed infusion jb4 01:10 Drug: Rocephin 1 grams Route: IV; Rate: per protocol; Site: right antecubital; jb4 01:13 Follow up: Response: No adverse reaction; IV Status: Completed infusion; IV Intake: [id number] 01:10 Drug: Bactrim (160 mg-800 mg (DS) 1 tablet Route: PO; jb4 01:54 Follow up: Response: No adverse reaction [facility] Disposition: 12/21/19 00:50 Discharged to Home. Impression: Diarrhea, unspecified, related conditions, unspecified, second trimester, Gastrointestinal hemorrhage, unspecified. - Condition is Stable. - Discharge Instructions: Food Choices to Help Relieve Diarrhea, Adult, Diarrhea, Adult, Gastrointestinal Bleeding, Rectal Bleeding, Diarrhea, Adult, Kmqa-mi-Pque, Gastrointestinal Bleeding, Hmbr-rp-Goaq, Rectal Bleeding, Eicl-qx-Nvcm. - Prescriptions for Vitamin 27- 0.8 mg Oral Tablet - take 1 tablet by ORAL route once daily; 30 tablet. Zofran 4 mg Oral Tablet - take 1 tablet by ORAL route every 12 hours As needed; 20 tablet. Bactrim DS 800- 160 mg Oral Tablet - take 1 tablet by ORAL route every 12 hours for 5 days; 10 tablet. - Medication Reconciliation Form, Thank You Letter, Antibiotic Education, Prescription Opioid Use form. - Follow up: Private Physician; When: 2 - 3 days; Reason: Recheck today's complaints, Continuance of care, Re-evaluation by your physician. Follow up: Elias Valdivia; When: 2 - 3 days; Reason: Recheck today's complaints, Continuance of care, Re-evaluation by your physician. - Problem is new. - Symptoms have improved. Signatures: Dispatcher [employer] EDKal Kerns MD MD cha Williams, Irene, RN RN Raimundo Ray RN RN jb4 Corrections: (The following items were deleted from the chart) 01:55 00:50 12/21/2019 00:50 Discharged to Home. Impression: Diarrhea, unspecified; jb4 related conditions, unspecified, second trimester; Gastrointestinal hemorrhage, unspecified. Condition is Stable. Discharge Instructions: Food Choices to Help Relieve Diarrhea, Adult, Diarrhea, Adult, Gastrointestinal Bleeding, Rectal Bleeding, Diarrhea, Adult, Vxft-jm-Wscq, Gastrointestinal Bleeding, Ieih-iv-Iajm, Rectal Bleeding, Xywl-vy-Krqr. Prescriptions for Vitamin 27-0.8 mg Oral Tablet - take 1 tablet by ORAL route once daily; 30 tablet, Zofran 4 mg Oral Tablet - take 1 tablet by ORAL route every 12 hours As needed; 20 tablet, Bactrim DS 800-160 mg Oral Tablet - take 1 tablet by ORAL route every 12 hours for 5 days; 10 tablet. and Forms are Medication Reconciliation Form, Thank You Letter, Antibiotic Education, Prescription Opioid Use. Follow up: Private Physician; When: 2 - 3 days; Reason: Recheck today's complaints, Continuance of care, Re-evaluation by your physician. Follow up: Elias Valdivia; When: 2 - 3 days; Reason: Recheck today's complaints, Continuance of care, Re-evaluation by your physician. Problem is new. Symptoms have improved. uzma
--- NOTE | 2019-12-21 00:51 | ER ---
Nurse's Notes [facility] Name: Jazmin Cheung Age: 34 yrs Sex: Female : 1985 Arrival Date: 12/20/2019 Time: 22:40 Bed 16 Private MD: Diagnosis: Diarrhea, unspecified; related conditions, unspecified, second trimester;Gastrointestinal hemorrhage, unspecified Presentation: 12/19 23:14 Chief complaint: Patient states: earlier today started feeling bad, had cold sweats, iw had diarrhea about 40 minutes ago and there was blood, pink colored , also having lower abd pain and back pain , is also approx 15 weeks . Coronavirus screen: At this time, the client does not indicate any symptoms associated with coronavirus-19. Ebola Screen: Patient negative for fever greater than or equal to 101.5 degrees Fahrenheit, and additional compatible Ebola Virus Disease symptoms Patient denies exposure to infectious person. Patient denies travel to an Ebola-affected area in the 21 days before illness onset. No symptoms or risks identified at this time. Initial Sepsis Screen: Does the patient meet any 2 criteria? No. Patient's initial sepsis screen is negative. Does the patient have a suspected source of infection? No. Patient's initial sepsis screen is negative. Risk Assessment: Do you want to hurt yourself or someone else? Patient reports no desire to harm self or others. Onset of symptoms was December 20, 2019. 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 - Social history:: Smoking status: Patient reports the use of cigarette tobacco products, smokes one pack cigarettes per day. Screenin:35 Abuse screen: Denies threats or abuse. Nutritional screening: No deficits noted. jb4 Tuberculosis screening: No symptoms or risk factors identified. Fall Risk None identified. Assessment: 23:35 General: Appears in no apparent distress. uncomfortable, Behavior is calm, cooperative, jb4 appropriate for age. Pain: Complains of pain in low back area Pain does not radiate. Pain currently is 3 out of 10 on a pain scale. Quality of pain is described as aching. Neuro: Level of Consciousness is awake, alert, obeys commands, Oriented to person, place, time, situation. Cardiovascular: Patient's skin is warm and dry. Respiratory: Airway is patent Respiratory effort is even, unlabored, Respiratory pattern is regular, symmetrical. GI: Reports diarrhea, bloody stool. : No signs and/or symptoms were reported regarding the genitourinary system. EENT: No signs and/or symptoms were reported regarding the EENT system. Derm: Skin is intact, Skin is pink, warm \T\ dry. Musculoskeletal: Circulation, motion, and sensation intact. Range of motion: intact in all extremities. 12/20 00:30 Reassessment: Patient appears in no apparent distress at this time. Patient and/or jb4 family updated on plan of care and expected duration. Pain level reassessed. Patient is alert, oriented x 3, equal unlabored respirations, skin warm/dry/pink. 01:30 Reassessment: Patient appears in no apparent distress at this time. Patient and/or jb4 family updated on plan of care and expected duration. Pain level reassessed. Patient is alert, oriented x 3, equal unlabored respirations, skin warm/dry/pink. Vital Signs: 12/19 23:14 BP 102 / 69; Pulse 91; Resp 16; Temp 97.8; Pulse Ox 100% on R/A; Weight 78.93 kg; iw Height 5 ft. 1 in. (154.94 cm); Pain /; 12/20 00:30 BP 108 / 65; Pulse 89; Resp 16; Pulse Ox 100% on R/A; jb4 01:30 BP 103 / 72; Pulse 92; Resp 16; Pulse Ox 100% on R/A; jb4 12/19 23:14 Body Mass Index 32.88 (78.93 kg, 154.94 cm) iw Vitals: 00:26 Heart Tones 163 bpm. iw ED Course: 12/19 22:40 Patient arrived in ED. am2 23:17 Triage completed. iw 23:29 Kal Wakefield MD is Attending Physician. [facility] 23:35 Raimundo Serrano, RN is Primary Nurse. jb4 23:35 Patient has correct armband on for positive identification. Placed in gown. Bed in low jb4 position. Call light in reach. Side rails up X 1. Pulse ox on. NIBP on. 12/20 00:50 Elias Valdivia MD is Referral Physician. uzma 01:45 No provider procedures requiring assistance completed. IV discontinued, intact, jb4 bleeding controlled, No redness/swelling at site. Pressure dressing applied. Administered Medications: 00:10 Drug: NS 0.9% 1000 ml Route: IV; Rate: 1 bolus; Site: right antecubital; iw 00:50 Follow up: Response: No adverse reaction; IV Status: Completed infusion jb4 01:10 Drug: Rocephin 1 grams Route: IV; Rate: per protocol; Site: right antecubital; jb4 01:13 Follow up: Response: No adverse reaction; IV Status: Completed infusion; IV Intake: [id number] 01:10 Drug: Bactrim (160 mg-800 mg (DS) 1 tablet Route: PO; jb4 01:54 Follow up: Response: No adverse reaction jb4 Intake: 01:13 IV: 10ml; Total: 10ml. jb4 Outcome: 00:50 Discharge ordered by . uzma 01:45 Discharged to home ambulatory, with family. jb4 01:45 Condition: stable 01:45 Discharge instructions given to patient, Instructed on discharge instructions, follow up and referral plans. medication usage, Demonstrated understanding of instructions, follow-up care, medications, Prescriptions given X 3. 01:55 Patient left the ED. jb4 Signatures: Kal Wakefield MD MD cha Williams, Irene, RN RN Raimundo Serrano, RN RN jb4 Naty Talamantes am2
[2019-12-21] MEDS ORDERED: CEFTRIAXONE/SWI 1gm 1 GM/10 ML SYR ONE (01:11)
[2019-12-21] MEDS ORDERED: SMZ./TMP. 800/160 MG TABLET ONE (01:11)
[2019-12-21 01:36] LABS: Urine Blood NEGATIVE (NEG); Urine Glucose NEGATIVE (NEG); Urine Protein NEGATIVE (NEG); Urine Specific Gravity 1.015 (1.005-1.030)
[2019-12-25 08:28] VITALS: BP 102/69; TEMP 97.8; O2SAT 100
== END 2019-12-21 01:55 | disposition home or self-care (01) ==
LOC: ER 22:39
DX: O99.612 Diseases of the digestive system complicating pregnancy, second trimester (principal); K62.5 Hemorrhage of anus and rectum; R19.7 Diarrhea, unspecified; O99.332 Smoking (tobacco) complicating pregnancy, second trimester; F17.210 Nicotine dependence, cigarettes, uncomplicated; Z3A.15 15 weeks gestation of pregnancy
CPT/HCPCS: 96361; 85025; 80048; 36415; 80076; 81003; 83690; 96374; 99284; J0696; J7030

== ENCOUNTER 2020-05-29 04:25 | Inpatient (IN) | payer OTHER ==
[2020-05-28 11:37] LABS: Absolute Lymphocytes (CBC) 3.3 K/uL (0.7-4.9); Basophils % 0.4 % (0-1.3); Hematocrit 37.8 % (36.0-45.0); Lymphocytes % 26.7 % (15.3-44.8); MPV 8.8 fL (7.6-11.3); RBC Red Blood Cell Count 4.12 M/uL (3.86-4.86)
[2020-05-28 11:49] LABS: Protime INR 0.83
[2020-05-28 12:00] LABS: Urine Appearance CLEAR; Urine Bilirubin NEGATIVE (NEG); Urine Blood NEGATIVE (NEG); Urine Color YELLOW; Urine Glucose NEGATIVE (NEG); Urine Protein NEGATIVE (NEG); Urine Specific Gravity 1.015 (1.005-1.030); Urine Urobilinogen 0.2 mg/dL (0.2-1.0); Urine pH 7.5 (5.0-7.0)
[2020-05-28 12:01] LABS: Urine Microscopic Reflex NO UMIC
[2020-05-28 22:49] LABS: RPR (Rapid Plasma Reagin) NON-REACT (NON-REACT)
--- OUTSIDE RECORDS SUMMARY | 2020-05-29 04:27 | XMS REPORT | Continuity of Care Document ---
:1985 Author Organization [facility]ly [facility] t Address [facility] [address] [place] [address] Care Team Providers Name Role Phone Unavailable Unavailable Unavailable Problems Condition Condition Condition Status Onset Resolution Last Treating Co mments Source Name Details Category Date Date Treatment Clinician Date Alcohol Alcohol Problem Active [facility] Gestationa Gestationa Problem Active [facility] l diabetes l diabetes Sharona kes - mellitus mellitus Memori a (GDM), (GDM), l antepartum antepartum Ou tpati , , ent gestationa gestationa Cl inics l diabetes l diabetes method of method of control control unspecifie unspecifie d d Dysthymia Dysthymia Problem [facility] Thyroid Thyroid Problem Active [facility] dysfunctio dysfunctio Sharona kes - n n [facility] Body mass Body mass [...] St pain pain [facility] 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 Medications Ordered Filled Start Stop Current Ordering Indication Dosage Frequency Signature Comments Components Source Medication Medication Date Date Medication? Clinician (SIG) Name Name Fluoxetine Fluoxetine Yes Aravind [address] [facility] HCl HCl Rekhi [facility] Procedures This patient has no known procedures. Encounters Start End Encounter Admission Attending Care Care Encounter Source Date/Time Date/Time Type Type Clinicians Facility Department ID 2018-04-20 2018-04-20 [facility] [id number] [facility] 16[facility]00[facility]00 16:00[facility]00 [facility] 2018-01-31 2018-01-31 [facility] [id number] [facility] 13[facility]00:00 13:00:00 t [facility] Medicine [facility] 2017-12-13 2017-12-13 [facility] [id number] [facility] 16[facility]39[facility] 16[facility]39[facility]00 [facility] 2017-12-06 2017-12-06 [facility] [id number] [address] 10:24:00 10:24:00 t [facility] 2017-12-01 2017-12-01 [facility] [id number] [address] 14:00:00 14:00:00 t [facility] 2017-10-25 2017-10-25 [facility] [id number] 11:14:00 11:14:00 t [facility] 2017-10-13 2017-10-13 [facility] [id number] [facility] 14:00:00 14:00:00 t [facility] 2017-09-22 2017-09-22 [facility] [id number] [facility] 13:16:00 13:16:00 [facility] 2017-09-21 2017-09-21 [facility] [id number] 14:45:00 14:45:00 [facility] 2017-08-29 2017-08-29 [facility] [id number] [facility] [address] 23:07:00 23:07:00 [facility] 2017-08-24 2017-08-24 [facility] [id number] [address] 10:30:00 10:30:00 [facility] 2017-07-21 2017-07-21 [facility] [id number] 09:30:00 09:30:00 t [facility] Outpati ent Clinics Results This patient has no known results.
[2020-05-29] MEDS ORDERED: Ringers Lactate 1,000 ML IV PRN (04:34)
[2020-05-29] MEDS ORDERED: CEFAZOLIN/SWI 2gm 2 GM/20 ML SYR IV SCH (05:00)
[2020-05-29] MEDS ORDERED: CEFAZOLIN 2 GM in NA CHLORIDE 0.9% 100 ML IVPB SCH (05:00)
[2020-05-29] MEDS ORDERED: Ringers Lactate 1,000 ML IV SCH (05:00)
[2020-05-29 05:17] VITALS: BMI 38.5
[2020-05-29] MEDS ORDERED: NA CIT/CITRIC AC 30 ML ORAL UDC PO ONE (05:30)
[2020-05-29] MEDS ORDERED: METOCLOPRAMIDE 10 MG/2mL INJ IV SCH (06:00)
[2020-05-29] MEDS ORDERED: METHYLERGONOVINE 0.2MG/ML AMP IM ONE (07:22)
[2020-05-29] MEDS ORDERED: ACETAMINOPHEN 500 MG TAB PO PRN ×2 (08:17)
[2020-05-29] MEDS ORDERED: BISACODYL 10 MG RECTAL SUPP RC PRN (08:17)
[2020-05-29] MEDS ORDERED: ONDANSETRON 4 MG/2 ML VIAL IV PRN (08:17)
[2020-05-29] MEDS ORDERED: ONDANSETRON 4 MG (ODT) TAB PO PRN (08:17)
[2020-05-29] MEDS ORDERED: DIPHENHYDRAMINE 25 MG TAB/CAP PO PRN (08:17)
[2020-05-29] MEDS ORDERED: NALOXONE 0.4 MG/ML VIAL IV PRN (08:42)
[2020-05-29] MEDS ORDERED: PROMETHAZINE INJ 25 MG/ML AMP IV PRN (08:44)
--- NOTE | 2020-05-29 08:50 | OP ---
Surgeon: Scot Ortiz MD Merchant Miller: Dr. Barros. Anesthesiologist: Dr. Quach. Indications: Jazmin Cheung is a 35-year-old multiparous female at 39 weeks with estimated rachel ght of 9 pounds on ultrasound. The patient knows very well that ultrasound is an estimating, could v gunjan by as much as a pound or more on either side. Full preoperative counseling concerning procedure and possible complications including infection, blood loss, anesthetic complications, injury to bladd er, bowel, ureter; postoperative complications; clots in legs and pneumonia. The patient knows fully well, it does not constitute all the possible problems that could occur during or following surgery. Anesthesia: Spinal block. Description Of Procedure: After prepping and draping, time-out was performed. Pfannenstiel incision was created. Incision was carried to the fascia. The fascia was incised and incision carried trans versely bilaterally. Anterior and posterior fascial planes were developed with both blunt sharp diss ection. Peritoneum was entered bluntly, low transverse bladder flap developed, low transverse uterin e incision created. A 7 pounds 10 ounces female was delivered with vacuum suction assistance. s 10 and 10. Placenta removed manually. Uterus cleared of clot and blood, after cord blood specimen was obtained. Uterus big and bulky, but contracted down well. Estimated blood loss 850, possibly 9 00 cc. Membranes removed. Cervical os dilated. Uterus closed with a running lock stitch of 1 chrom ic followed by imbricating stitch of 1 chromic from the midportion to the right side. Two figure-of- eight stitches in the right side for complete hemostasis. The gutters were cleared of clot and blood . Uterus replaced in the peritoneal cavity. Further inspection of suture line showed no further ble eding. Rectus muscles were reapproximated using 0 Vicryl 3 interrupted sutures. The fascia was clos ed using 1 Vicryl running from either angle to the midline and subcutaneous tissue closed with 2-0 pl ain. Garber used for the skin. The patient has been given 2 g of Ancef prior to the procedure. To lerated all procedures well. Transferred back to her room in good condition. Final Diagnoses: Term intrauterine , suspected macrosomia, maternal request for marina russell section, spinal block anesthesia, low transverse uterine incision. NBC/MODL Voice ID: [id number] Report ID: [id number]
[2020-05-29] MEDS ORDERED: Ringers Lactate 1,000 ML IV ONE (08:52)
[2020-05-29] MEDS ORDERED: INFLUENZA VACCINE (for 3y+) 0.5 ML DOSE IMVAC ONE (09:00)
[2020-05-29] MEDS ORDERED: FAMOTIDINE 20 MG/2 ML VIAL IV SCH (09:00)
[2020-05-29] MEDS: KETOROLAC 30 MG/ML INJ IV PRN ×2 (11:50→21:29)
[2020-05-29] MEDS: OXYTOCIN/LR 20 UNIT/1,000 ML BAG IV SCH (13:15)
[2020-05-29] MEDS: DIPHENHYDRAMINE 50 MG/ML VIAL IV PRN (13:15)
[2020-05-29] MEDS ORDERED: CEFAZOLIN/SWI 1gm 1 GM/10 ML SYR IV SCH (15:00)
[2020-05-29] MEDS ORDERED: CEFAZOLIN 2 GM in NA CHLORIDE 0.9% 100 ML IVPB ONE (16:00)
[2020-05-29] MEDS: Oxycodone HCl/Acetaminophen 1 TAB TAB PO PRN (18:15)
[2020-05-29] MEDS ORDERED: CEFAZOLIN/SWI 2gm 2 GM/20 ML SYR ONE (18:42)
[2020-05-30] MEDS: DIPHENHYDRAMINE 50 MG/ML VIAL IV PRN (01:00)
[2020-05-30] MEDS: Oxycodone HCl/Acetaminophen 1 TAB TAB PO PRN ×4 (03:30→22:30)
[2020-05-30] MEDS: OXYTOCIN/LR 20 UNIT/1,000 ML BAG IV SCH ×2 (04:40→08:59)
[2020-05-30] MEDS: MAGNESIUM HYDROXIDE 8% 30 ML PO PRN ×2 (07:00→21:40)
[2020-05-30] MEDS: KETOROLAC 30 MG/ML INJ IV PRN (07:00)
--- NOTE | 2020-05-30 07:48 | PN ---
Postoperatively done quite well. Vital signs all normal. Afebrile. H and H with minimal change. W e will discontinue her Villarreal and IV. Begin ambulation. Begin p.o. intake. Tdap and flu shot discus sed and encouraged that will be tomorrow if she chooses. Full postop talk given. Doing well at this point. No problems reported. LEWIS/SHANNON Voice ID: [id number] Report ID: [id number]
[2020-05-30] MEDS: D5LR 1,000 ML with OXYTOCIN 20 UNIT IV SCH ×2 (09:00)
[2020-05-30] MEDS: IBUPROFEN 600 MG TAB PO PRN ×3 (10:05→21:40)
[2020-05-31] MEDS: Oxycodone HCl/Acetaminophen 1 TAB TAB PO PRN (05:58)
[2020-05-31] MEDS ORDERED: Tdap (Diph,Pertuss(Acell),Tet Vac) 0.5 ML SYR IMVAC ONE (07:34)
--- NOTE | 2020-05-31 08:09 | DS ---
Hospital Course: Jazmin Cheung is a 35-year-old multiparous female, thought to possibly have macrosomia, although she was aware that ultrasound estimate could be wrong by as much as a pound or m ore. Her cervix was unfavorable. The patient does not wish to wait till next week for reassessment and possible Cytotec insertion. This was discussed with the patient and has been on several occasion s. The patient underwent primary section with delivery of a 7 pounds 10 ounces female, Apga rs 10 and 10. Spinal block anesthesia, 850 cc blood loss. COVID negative. Strep negative. Rh posi tive, immune to Rubella. Postoperatively did well. She is afebrile, ambulating, voiding, lochia is normal. No post spinal block problems. Will be dismissed this morning to report back to my office T eusebio next week for followup. To report any temperature elevation of 100 degrees or greater, sever e pain, heavy bleeding, or any other type of abnormalities. Dismissed with tramadol for analgesia. Tdap and flu shots have been offered. Final Diagnoses: Term intrauterine 39 weeks, primary section for suspected macrosomia, spinal block anesthesia. LEWIS/MODL Voice ID: [id number] Report ID: [id number]
[2020-05-31 08:49] VITALS: BP 124/72; TEMP 97.6
[2020-06-01 20:21] LABS: HBsAG Nonreactive (Nonreactive)
--- NOTE | 2020-06-12 15:47 | PREOPHP ---
Date of Admission: 05/29/2020 History Of Present Illness: 35-year-old multiparous female, thought to possibly have macrosomi a. She knows ultrasound could miss the baby's weight by at least a pound or more. She has a family history of injury to the brachial plexus in a family member and she wished to proceed with . Pros and cons of this thoroughly discussed. Infection; blood loss; anesthetic complications; injury to bladder, bowel, ureter; postoperative complications; clots in legs; and pneumonia. The patient k nows fully well this does not constitute all the possible problems that could occur during or followi ng surgery. Family History: Noncontributory. Past Medical History: Noncontributory. Allergies: NO ALLERGIES. Physical Examination: HEENT: Clear. Pupils equal, round, reactive to light and accommodation. Conjunctivae well perfused . No oral, lingual, or buccal lesions. Chest and lungs: Clear. Heart: Without murmurs, thrills, heaves, or rubs. Breasts: Without masses on initial exam. Abdomen: Term size or larger. Extremities: Clear. Baby was vertex, high in the pelvis, unfavorable cervix, admitted for section. LEWIS/MODL Voice ID: [id number]
== END 2020-05-31 09:10 | disposition home or self-care (01) | DRG 788 ==
LOC: 2ND-WC 04:25
PROVIDERS: ADMIT Specialist; ATTEND Specialist
PROC: 10D00Z1 Extraction of Products of Conception, Low, Open Approach (ICD-10-PCS; 2020-05-29)
PROC: 10907ZC Drainage of Amniotic Fluid, Therapeutic from Products of Conception, Via Natural or Artificial Opening (ICD-10-PCS; principal; 2020-05-29 07:30)
DX: O36.63X0 Maternal care for excessive fetal growth, third trimester, not applicable or unspecified (principal); Z3A.39 39 weeks gestation of pregnancy; Z37.0 Single live birth; Z23 Encounter for immunization; Z20.822 Contact with and (suspected) exposure to COVID-19
CPT/HCPCS: 36415; 76805; 76819; 81003; 85014; 85025; 85610; 85730; 86592; 86850; 86900; 86901; 87340; 88307; 90471; 90715; 99218; J0690; J1200; J2210; J2590; J2765; J7120; J7121; U0003

== ENCOUNTER 2021-01-29 23:20 | Emergency (ER) | payer OTHER ==
[2021-01-30] MEDS ORDERED: IBUPROFEN 400 MG TAB ONE ×2 (02:06→02:20)
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
[2021-01-30 06:22] VITALS: O2SAT 98
[2021-01-30 06:24] VITALS: BP 126/91; TEMP 97.7
== END 2021-01-30 06:17 | disposition home or self-care (01) ==
LOC: ER 23:20
DX: T76.21XA Adult sexual abuse, suspected, initial encounter (principal)
CPT/HCPCS: 99283

== ENCOUNTER 2021-02-01 14:28 | Emergency (ER) | payer OTHER ==
--- NOTE | 2021-02-01 15:21 | ER ---
Nurse's Notes [facility] Name: Jazmin Cheung Age: 36 yrs Sex: Female : 1985 Arrival Date: 02/01/2021 Time: 14:33 Bed 18 Private MD: Diagnosis: Rash and other nonspecific skin eruption-left lower leg Presentation: 02/01 14:39 Chief complaint: Patient states: "Im not too sure when I was bitten but I have this vg1 circular patch on my Left Darling and I think it may be from a Brown Recluse Spider, even my family thinks this may be from a spider" Pt states 'a bit of nausea'. Coronavirus screen: Vaccine status: Patient reports being unvaccinated. Ebola Screen: Patient negative for fever greater than or equal to 101.5 degrees Fahrenheit, and additional compatible Ebola Virus Disease symptoms. Initial Sepsis Screen: Does the patient meet any 2 criteria? No. Patient's initial sepsis screen is negative. Does the patient have a suspected source of infection? No. Patient's initial sepsis screen is negative. Risk Assessment: Do you want to hurt yourself or someone else? Patient reports no desire to harm self or others. Onset of symptoms was February 01, 2021. 14:39 Method Of Arrival: [facility] 14:39 Acuity: SHANNON 4 vg1 Triage Assessment: 14:42 Bite description: bite sustained to left darling is from insect by an unknown animal, vg1 animal information:. General: Appears in no apparent distress. comfortable, Behavior is calm, cooperative. Pain: Complains of pain in left darling. 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 - Social history:: Smoking status: Patient reports the use of cigarette tobacco products, smokes one pack cigarettes per day. Screenin:56 Abuse screen: Denies threats or abuse. Denies injuries from another. Nutritional tc5 screening: No deficits noted. Tuberculosis screening: No symptoms or risk factors identified. Fall Risk None identified. Assessment: 14:55 Reassessment: Patient appears in no apparent distress at this time. pt states ppl have tc5 been telling her that she probably got bit by spider and should have it looked at. Pt has a bruised area to the LLE, states it only hurts when it is touched. Vital Signs: 14:39 BP 149 / 89; Pulse 101; Resp 18; Temp 98.7; Pulse Ox 99% ; Weight 90.72 kg; Height 5 vg1 ft. 1 in. (154.94 cm); Pain 2/10; 14:39 Body Mass Index 37.79 (90.72 kg, 154.94 cm) vg1 ED Course: 14:33 Patient arrived in ED. mr 14:42 Triage completed. vg1 14:42 Arm band placed on. vg1 14:46 Keya Tapia, RN is Primary Nurse. tc5 15:08 Kal Moore PA is PHCP. cp 15:08 Félix Jules MD is Attending Physician. cp Administered Medications: No medications were administered Outcome: 15:21 Discharge ordered by MD. cp 15:40 Patient left the ED. tc5 Signatures: Rylee Carroll mr Kal Moore PA PA cp Garcia, Victoria, RN RN vg1 Keya Tapia RN RN tc5
--- NOTE | 2021-02-01 15:21 | EDPHYS ---
Physician Documentation [facility] Name: Jazmin Cheung Age: 36 yrs Sex: Female : 1985 Arrival Date: 02/01/2021 Time: 14:33 Bed 18 Private MD: ED Physician Félix Jules HPI: 02/01 15:15 This 36 yrs old Female presents to ER via Ambulatory with complaints of cp Possible Insect Bite. 15:15 The patient presents with possible brown recluse bite. cp 15:15 The complaints affect the left yusuf. Onset: The symptoms/episode began/occurred today. cp Associated signs and symptoms: Pertinent positives: nausea, Pertinent negatives fever, warmth. Treatment prior to arrival includes: no previous treatment. 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 - Social history:: Smoking status: Patient reports the use of cigarette tobacco products, smokes one pack cigarettes per day. ROS: 15:16 Constitutional: Negative for body aches, chills, fever. cp 15:16 Abdomen/GI: Positive for nausea. 15:16 Skin: Positive for of the left lower leg, possible spider bite. 15:16 Neuro: Negative for headache, weakness. 15:16 All other systems are negative. Exam: 15:17 Head/Face: Normocephalic, atraumatic. cp 15:17 Constitutional: The patient appears in no acute distress, alert, awake, comfortable, non-toxic, well developed, well nourished. 15:17 Skin: quarter size area of ecchymosis with central punctate. no swelling and no cp drainage. Vital Signs: 14:39 BP 149 / 89; Pulse 101; Resp 18; Temp 98.7; Pulse Ox 99% ; Weight 90.72 kg; Height 5 vg1 ft. 1 in. (154.94 cm); Pain 2/10; 14:39 Body Mass Index 37.79 (90.72 kg, 154.94 cm) vg1 MDM: 15:10 Patient medically screened. cp 15:17 Differential diagnosis: abscess, cellulitis. cp 15:20 Data reviewed: vital signs, nurses notes, and as a result, I will discharge patient. cp 15:20 Counseling: I had a detailed discussion with the patient and/or guardian regarding: the cp historical points, exam findings, and any diagnostic results supporting the discharge/admit diagnosis, to return to the emergency department if symptoms worsen or persist or if there are any questions or concerns that arise at home. Administered Medications: No medications were administered Disposition: 15:25 Chart complete. cp Disposition Summary: 02/01/21 15:21 Discharge Ordered Location: Home cp Problem: new cp Symptoms: are unchanged cp Condition: Stable cp Diagnosis - Rash and other nonspecific skin eruption - left lower leg cp Followup: cp - With: Private Physician - When: 48 Hours - Reason: Worsening of condition Discharge Instructions: - Discharge Summary Sheet cp - Insect Bite, Adult cp - Rash, Adult cp Forms: - Medication Reconciliation Form cp - Thank You Letter cp - Antibiotic Education cp - Prescription Opioid Use cp Addendum: 02/05/2021 00:02 Co-signature as Attending Physician, Félix Jules MD I agree with the assessment and r n plan of care. Attestation: The patient's history, exam findings, diagnostics, and a summary of any interventions or procedures was reviewed in detail with Kal INIGUEZ. Signatures: Félix Jules MD MD rn Page, Corey, PA PA cp Garcia, Victoria RN RN vg1 Corrections: (The following items were deleted from the chart) 02/02 15:18 02/01 15:15 Associated signs and symptoms: The patient has no apparent associated signs cp or symptoms, cp
[2021-02-01 15:47] VITALS: BP 149/89; TEMP 98.7; O2SAT 99
== END 2021-02-01 15:40 | disposition home or self-care (01) ==
LOC: ER 14:28
DX: R21 Rash and other nonspecific skin eruption (principal); F17.210 Nicotine dependence, cigarettes, uncomplicated
CPT/HCPCS: 99281